=== PATIENT | female | born 1960 | race Caucasian/White ===

== ENCOUNTER 2016-10-16 06:31 | Outpatient (CLI) | payer OTHER ==
[~2016-10-16] VITALS: Ht 165.1 cm; Wt 72.7 kg
[2016-10-16 07:30] VITALS: BP 124/67; Ht 165.1 cm; Wt 72.7 kg
[2016-10-16 07:32] LABS: CALC OSMOLALITY 273 mosm/kg (275-300); CALCIUM 9.1 mg/dL (8.5-10.1); CARBON DIOXIDE 29.4 mmol/L (21.0-32.0); CHLORIDE - SERUM 99 mmol/L (98-107); CREATININE - SERUM 0.5 mg/dL (0.6-1.3); GLUCOSE 160 mg/dL (74-106); POTASSIUM - SERUM 4.1 mmol/L (3.5-5.1); SODIUM 137 mmol/L (136-145); UREA NITROGEN 5 mg/dL (7-18); eGFR NON AFRICAN AMERICAN > 90 mL/min (90-120)
[2016-10-16 07:33] LABS: BASOPHILS 0.2 % (0-2); EOSINOPHILS 0.4 % (0-7); HEMATOCRIT 43.7 % (36.0-48.0); HEMOGLOBIN 14.7 g/dL (12-16); IMMATURE GRANULOCYTES 0.4 % (0-5); LYMPHOCYTES 23.7 % (15-50); MCH 31.7 pg (26.0-34.0); MCHC 33.6 g/dL (31.0-37.0); MCV 94.4 fL (80.0-100.0); MEAN PLATELET VOLUME 10.4 fL (7.4-10.4); MONOCYTES 8.9 % (2-11); NEUTROPHILS 66.4 % (40-80); PLATELET COUNT 292 10x3/uL (130-400); RBC 4.63 10x6/uL (4.00-5.40); RDW 14.6 % (11.5-14.5); WBC 11.2 10x3/uL (4.8-10.8)
[2016-10-16 07:37] LABS: APTT 34.9 SECONDS (22.8-39.4); INR 0.89 (0.85-1.17); PROTIME 11.9 SECONDS (11.6-15.0)
[2016-10-16] MEDS ORDERED: ZETIA10 MG PO (07:38)
[2016-10-16] MEDS ORDERED: PRINIVIL20 MG PO (07:38)
[2016-10-16] MEDS ORDERED: CYMBALTA60 MG PO (07:39)
[2016-10-16] MEDS ORDERED: PREMARIN1.25 MG PO (07:39)
[2016-10-16] MEDS ORDERED: PRAVACHOL40 MG PO (07:39)
[2016-10-16] MEDS ORDERED: ACTOPLUS MET X1 EAC1 PO (07:40)
[2016-10-16] MEDS ORDERED: OXYCODONE HCL10 MG PO (07:40)
[2016-10-16] MEDS ORDERED: OMEPRAZOLE20 M1 PO (07:41)
[2016-10-16] MEDS ORDERED: VALIUM 2 MG TAB2 MG PO (07:41)
[2016-10-16] MEDS ORDERED: OYST-CAL-5001 TAB PO (07:42)
[2016-10-16] MEDS ORDERED: VITAMIN E400 UNI2 PO (07:43)
[2016-10-16] MEDS ORDERED: BIMATOPROST2.5 ML EACH EYE (07:43)
[2016-10-16] MEDS ORDERED: LANTUS SOL100 UNIT/1 SQ (07:43)
--- NOTE | 2016-10-16 13:45 | NUR ---
IV TO LEFT FA DC'D WITH TIP INTACT. NO REDNESS OR SWELLING NOTED TO SITE. DISCHARGE INSTRUCTIONS REVIEWED, VERBALIZED UNDERSTANDING. DC'D WITH FAMILY WITH STAFF SUPERVISION TO CAR. SEE PAPER CHART FOR VITAL SIGNS PER ORDERS
== END 2016-10-16 13:45 | disposition home or self-care (01) ==
LOC: D.OPS 06:31 → D.CT 09:00 → D.OPS 13:45
PROVIDERS: General Practice
DX: C22.7 Other specified carcinomas of liver (principal); E78.5 Hyperlipidemia, unspecified; I10 Essential (primary) hypertension; E11.9 Type 2 diabetes mellitus without complications; F17.200 Nicotine dependence, unspecified, uncomplicated

== ENCOUNTER 2017-06-01 21:47 | Emergency (ER) | payer MEDICARE, OTHER ==
[2016-10-16 07:30] VITALS: BMI 26.6
[~2017-06-01 21:47] MED LIST: ACTOPLUS MET X1 EAC1 PO; BIMATOPROST2.5 ML EACH EYE; CYMBALTA60 MG PO; LANTUS SOL100 UNIT/1 SQ; OMEPRAZOLE20 M1 PO; OXYCODONE HCL10 MG PO; OYST-CAL-5001 TAB PO; PRAVACHOL40 MG PO; PREMARIN1.25 MG PO; PRINIVIL20 MG PO; VALIUM 2 MG TAB2 MG PO; VITAMIN E400 UNI2 PO; ZETIA10 MG PO
[2017-06-01 22:47] LABS: BASOPHILS 0.2 % (0-2); EOSINOPHILS 0.3 % (0-7); HEMOGLOBIN 15.4 g/dL (12-16); IMMATURE GRANULOCYTES 0.5 % (0-5); LYMPHOCYTES 18.5 % (15-50); MCH 27.5 pg (26.0-34.0); MCHC 33.5 g/dL (31.0-37.0); MEAN PLATELET VOLUME 9.7 fL (7.4-10.4); MONOCYTES 9.9 % (2-11); NEUTROPHILS 70.6 % (40-80); PLATELET COUNT 172 10x3/uL (130-400); RBC 5.61 10x6/uL (4.00-5.40); RDW 16.2 % (11.5-14.5); WBC 10.1 10x3/uL (4.8-10.8)
[2017-06-01 23:04] LABS: ALBUMIN 2.6 g/dL (3.4-5.0); ALKALINE PHOSPHATASE 232 U/L (46-116); ALT (SGPT) 120 U/L (10-68); BILIRUBIN - TOTAL 0.55 mg/dL (0.2-1.3); CALC OSMOLALITY 263 mosm/kg (275-300); CALCIUM 8.2 mg/dL (8.5-10.1); CARBON DIOXIDE 25.1 mmol/L (21.0-32.0); CHLORIDE - SERUM 93 mmol/L (98-107); CREATININE - SERUM 0.5 mg/dL (0.6-1.3); GLUCOSE 290 mg/dL (74-106); PROTEIN - SERUM 6.5 g/dL (6.4-8.2); SODIUM 127 mmol/L (136-145); UREA NITROGEN 6 mg/dL (7-18); eGFR NON AFRICAN AMERICAN > 90 mL/min (90-120)
[2017-06-01 23:11] LABS: LIPASE 111 U/L (73-393); MAGNESIUM - SERUM 1.3 mg/dL (1.8-2.4); PRO BNP 51 pg/mL (0-125)
[2017-06-01 23:25] LABS: APPEARANCE CLEAR (CLEAR); BILIRUBIN NEGATIVE (NEGATIVE); COLOR YELLOW (YELLOW); GLUCOSE 1000 mg/dL (NEGATIVE); KETONE NEGATIVE (NEGATIVE); NITRITE NEGATIVE (NEGATIVE); PROTEIN NEGATIVE (NEGATIVE); SPECIFIC GRAVITY 1.015 (1.005-1.020); UROBILINOGEN NORMAL (NORMAL)
== END 2017-06-02 00:19 | disposition home or self-care (01) ==
LOC: D.ER 21:47
PROVIDERS: Nurse Practitioner Family
DX: R10.11 Right upper quadrant pain (principal); Z85.05 Personal history of malignant neoplasm of liver; E11.9 Type 2 diabetes mellitus without complications; I10 Essential (primary) hypertension; H40.9 Unspecified glaucoma; F17.200 Nicotine dependence, unspecified, uncomplicated

== ENCOUNTER 2017-10-23 14:16 | Emergency (ER) | payer MEDICARE, OTHER ==
[~2017-10-23] VITALS: Ht 165.1 cm; Wt 56.8 kg
[2017-10-23 14:35] VITALS: Ht 165.1 cm; Wt 56.8 kg
[2017-10-23 15:22] LABS: BASOPHILS 0.2 % (0-2); EOSINOPHILS 0.2 % (0-7); HEMATOCRIT 45.6 % (36.0-48.0); HEMOGLOBIN 15.6 g/dL (12-16); IMMATURE GRANULOCYTES 1.3 % (0-5); LYMPHOCYTES 12.1 % (15-50); MCH 27.8 pg (26.0-34.0); MCHC 34.2 g/dL (31.0-37.0); MCV 81.1 fL (80.0-100.0); MEAN PLATELET VOLUME 9.8 fL (7.4-10.4); MONOCYTES 13.6 % (2-11); NEUTROPHILS 72.6 % (40-80); RBC 5.62 10x6/uL (4.00-5.40); RDW 17.1 % (11.5-14.5); WBC 14.7 10x3/uL (4.8-10.8)
[2017-10-23 15:23] LABS: PLATELET COUNT 250 10x3/uL (130-400)
[2017-10-23 15:34] LABS: ALBUMIN 2.5 g/dL (3.4-5.0); ALKALINE PHOSPHATASE 409 U/L (46-116); ALT (SGPT) 173 U/L (10-68); BILIRUBIN - TOTAL 4.29 mg/dL (0.2-1.3); CALC OSMOLALITY 267 mosm/kg (275-300); CALCIUM 8.9 mg/dL (8.5-10.1); CHLORIDE - SERUM 91 mmol/L (98-107); CREATININE - SERUM 0.5 mg/dL (0.6-1.3); POTASSIUM - SERUM 4.8 mmol/L (3.5-5.1); PROTEIN - SERUM 7.2 g/dL (6.4-8.2); SODIUM 126 mmol/L (136-145); UREA NITROGEN 11 mg/dL (7-18); eGFR NON AFRICAN AMERICAN > 90 mL/min (90-120)
[2017-10-23 15:35] LABS: GLUCOSE 381 mg/dL (74-106)
[2017-10-23 15:40] LABS: APPEARANCE HAZY (CLEAR); BILIRUBIN 1+ (NEGATIVE); COLOR AMBER (YELLOW); GLUCOSE 1000 mg/dL (NEGATIVE); KETONE NEGATIVE (NEGATIVE); NITRITE NEGATIVE (NEGATIVE); PH 5.5 (5.0-6.0); PROTEIN TRACE mg/dL (NEGATIVE)
[2017-10-23 15:46] LABS: BACTERIA MANY /hpf (NONE SEEN); EPITHELIAL CELLS 0-5 /hpf (0-5); RED CELLS - URINE 0-5 /hpf (0-5)
[2017-10-24 00:46] VITALS: BP 136/77
== END 2017-10-23 22:15 | disposition home or self-care (01) ==
LOC: D.ER 14:16
PROVIDERS: Family Medicine
DX: R10.31 Right lower quadrant pain (principal); C78.7 Secondary malignant neoplasm of liver and intrahepatic bile duct; R11.0 Nausea; E11.9 Type 2 diabetes mellitus without complications; I10 Essential (primary) hypertension; K21.9 Gastro-esophageal reflux disease without esophagitis; F17.200 Nicotine dependence, unspecified, uncomplicated